=== PATIENT | female | born 1960 | race Caucasian/White ===

== ENCOUNTER 2016-05-27 23:28 | Emergency (ER) | payer MEDICAID ==
[~2016-05-27] VITALS: Ht 162.6 cm; Wt 106.8 kg
[~2016-05-27 23:28] MED LIST: ACIPHEX20 MG PO; ADVAIR 250/28 DISKUS IH; ALBUTEROL0.09 MG/Ac IH; ANTIVERT 25MG25 MG PO; ASPI325T6 PO; CITRATE OF MAG300 ML PO; CLONAZEPAM PO; COREG 25MG25 MG/TAB PO; COREG 6.256.25 MG/TA PO; CRESTOR PO; CUBICIN 500MG500 MG IV; CYMBALTA; DILANTIN 100MG100 MG; DILANTIN PO; DOXYCYCLINE 10100 MG PO; DULCOLAX TAB5 MG PO; EPIPEN 2-PAK1 MG/ML IM; FLEXERIL10 MG PO; HCTZ 25MG TAB25 MG PO; KLONOPIN WAFERS1 MG PO; KLONOPIN2 MG PO; LASIX40 MG PO; LEVOTHROID0.125 MG PO; LEVOXYL0.1 MG PO; LEXAPRO20 MG PO; LIDODERM 5% PATC1 EA TP; LIPITOR 40MG TA40 MG PO; LORTAB 5/500 501 TAB PO; MIRALAX PA17 GM/Dose PO; MOTRIN 600600 MG/TAB PO; NO HOME MEDICATIONS; NORCO 325 MG-51 TAB PO; NORVASC 10MG10 MG PO; NUEDEXTA 20 MG-1 CAP PO; PEPCID 20MG TAB20 MG PO; PERCOCET 325 MG1 TA2 PO; PERICOLACE 30 M1 CAP PO; PHENYTEK300 MG PO; PREDNISONE10 MG; PREDNISONE20 MG PO; PROTONIX 40MG T40 MG PO; PROTONIX20 MG PO; Patient's Own Medication PO; RHINOCORT AQUA8.6 GM NS; TYLENOL 325MG325 MG PO; VENTOLIN0.09 MG IH; VITAMIN D 50,1.25 MG PO; XANAX 0.5MG0.5 MG PO; XANAX0.5 MG PO; ZESTRIL 10MG10 MG PO; ZESTRIL40 MG PO; ZOFRAN 4MG T4 MG/TAB PO; [UNRECOGNIZED DRUG - OTHER]
[2016-05-27 23:31] VITALS: TEMP 102.3
[2016-05-28 01:06] LABS: HEMATOCRIT 38.4 % (37.0-47.0); HEMOGLOBIN 12.7 g/dl (12.5-16.0); MEAN CELL VOLUME 94 fl (80.0-100.0); MEAN CORPUSCULAR HEMOGLOBIN 31 pg (27.0-31.0); MEAN CORPUSCULAR HGB CONC 33 g/dl (33.0-37.0); PLATELET COUNT 158 K/mm3 (130-400); RED BLOOD COUNT 4.08 M/mm3 (4.10-5.30); REDCELL DISTRIBUTION WIDTH-CV 13.2 % (11.5-14.5)
[2016-05-28 01:07] LABS: ADD PATHOLOGY DIFF REVIEW NO
[2016-05-28 01:17] LABS: ADJUSTED CALCIUM 9.2 mg/dL (8.4-10.2); ALBUMIN 4.5 gm/dL (3.5-5.0); BILIRUBIN,TOTAL 0.5 mg/dL (0.0-1.0); CALCIUM 9.6 mg/dL (8.4-10.2); CREATININE, serum 0.56 mg/dL (0.52-1.25); POTASSIUM 4.1 mmol/L (3.4-5.0); TOTAL PROTEIN 7.4 gm/dL (6.4-8.2)
[2016-05-28 02:19] LABS: INFLUENZA B NEGATIVE
[2016-05-28 02:40] LABS: BAND 21 % (0-10); EOSINOPHIL 1 % (0-4); NEUTROPHILS 33 % (42.0-75.2); TOTAL CELLS COUNTED 100
[2016-05-28] MEDS ORDERED: PREDNISONE20 MG PO (03:32)
[2016-05-28] MEDS ORDERED: ALBUTEROL0.83 MG/ML IH (03:32)
[2016-05-28] MEDS ORDERED: AMOXICILLIN/CLA1 TA1 PO (03:32)
[2016-05-28 03:47] VITALS: BP 116/73; PULSE 82
== END 2016-05-28 03:49 | disposition home or self-care (01) ==
LOC: COL.ER 23:28
PROVIDERS: Emergency Medicine
DX: J18.9 Pneumonia, unspecified organism (principal); J45.909 Unspecified asthma, uncomplicated; I10 Essential (primary) hypertension
CPT/HCPCS: J0696; J2930; J7030

== ENCOUNTER 2016-07-11 17:09 | Emergency (ER) | payer MEDICAID ==
[~2016-07-11] VITALS: Ht 162.6 cm; Wt 150.0 kg
[~2016-07-11 17:09] MED LIST changes: +ALBUTEROL0.83 MG/ML IH; +AMOXICILLIN/CLA1 TA1 PO
[2016-07-11 17:10] VITALS: BP 132/69; PULSE 62; TEMP 98.4
[2016-07-11] MEDS ORDERED: NEURONTIN300 MG/CAP PO (17:45)
[2016-07-11] MEDS ORDERED: KEPPRA 500MG500 MG PO (17:45)
== END 2016-07-11 19:15 | disposition home or self-care (01) ==
LOC: COL.ER 17:09
DX: S93.692A Other sprain of left foot, initial encounter (principal); X50.1XXA Overexertion from prolonged static or awkward postures, initial encounter; W01.0XXA Fall on same level from slipping, tripping and stumbling without subsequent striking against object, initial encounter; Y92.009 Unspecified place in unspecified non-institutional (private) residence as the place of occurrence of the external cause; I10 Essential (primary) hypertension

== ENCOUNTER → 2016-08-11 | Outpatient (CLI) | payer MEDICAID ==
[~2016-08-11] MED LIST changes: +KEPPRA 500MG500 MG PO; +NEURONTIN300 MG/CAP PO; +ZANAFLEX CAPSULE2 MG PO
== END ==
LOC: BHSO 09:30
DX: F33.1 Major depressive disorder, recurrent, moderate (principal)

== ENCOUNTER 2016-10-09 13:15 | Outpatient (RCR) | payer MEDICAID ==
[~2016-10-09 13:15] MED LIST changes: -ZANAFLEX CAPSULE2 MG PO
[2016-12-23] MEDS ORDERED: ZANAFLEX CAPSULE2 MG PO (17:15)
== END 2016-12-22 ==
LOC: MKS.ESL.PT
DX: D32.9 Benign neoplasm of meninges, unspecified (principal); I89.0 Lymphedema, not elsewhere classified; R27.8 Other lack of coordination

== ENCOUNTER 2016-12-23 16:25 | Emergency (ER) | payer MEDICAID ==
[~2016-12-23] VITALS: Ht 162.6 cm; Wt 154.5 kg
[2016-12-23 16:36] VITALS: TEMP 99.1
[2016-12-23] MEDS ORDERED: ZANAFLEX CAPSULE2 MG PO (17:15)
[2016-12-23 17:43] LABS: MEAN CELL VOLUME 93 fl (80.0-100.0); MEAN CORPUSCULAR HGB CONC 34 g/dl (33.0-37.0); MEAN PLATELET VOLUME 11.3 fl (7.4-10.4); PLATELET COUNT 160 K/mm3 (130-400); RED BLOOD COUNT 3.68 M/mm3 (4.10-5.30); REDCELL DISTRIBUTION WIDTH-CV 12.6 % (11.5-14.5); WHITE BLOOD COUNT 7.1 K/mm3 (4.8-10.8)
[2016-12-23 17:50] LABS: PROTHROMBIN TIME 11.6 SECONDS (9.7-12.8)
[2016-12-23 17:51] LABS: HEMATOCRIT 34.1 % (37.0-47.0); HEMOGLOBIN 11.5 g/dl (12.5-16.0); MEAN CORPUSCULAR HEMOGLOBIN 31 pg (27.0-31.0)
[2016-12-23 17:52] LABS: ADD PATHOLOGY DIFF REVIEW NO
[2016-12-23 17:55] LABS: ADJUSTED CALCIUM 9.1 mg/dL (8.4-10.2); ALANINE AMINOTRANSFERASE 32 U/L (9-52); ALBUMIN 4.5 gm/dL (3.5-5.0); ALKALINE PHOSPHATASE 84 U/L (50-136); ANION GAP 14 mmol/L (7-16); BILIRUBIN,TOTAL 0.5 mg/dL (0.0-1.0); BLOOD UREA NITROGEN 14 mg/dL (7-17); C-REACTIVE PROTEIN 1.5 mg/dL (0.0-0.9); CALCIUM 9.5 mg/dL (8.4-10.2); CARBON DIOXIDE 24 mmol/L (22-30); CHLORIDE 103 mmol/L (98-107); CREATININE, serum 0.59 mg/dL (0.52-1.25); GLUCOSE 131 mg/dL (74-106); POTASSIUM 3.9 mmol/L (3.4-5.0); SODIUM 141 mmol/L (137-145)
[2016-12-23 18:04] LABS: B-TYPE NATRIURETIC PEPTIDE 69 pg/mL (0-125)
[2016-12-23 18:06] LABS: TROPONIN-I < 0.012 ng/mL (0.000-0.034)
[2016-12-23 18:21] LABS: BAND 5 % (0-10); EOSINOPHIL 2 % (0-4); METAMYELOCYTE 2 % (0-0); NEUTROPHILS 43 % (42.0-75.2); PLATELET ESTIMATE NORMAL (NORMAL); TOTAL CELLS COUNTED 100
[2016-12-23 18:22] LABS: THYROID STIMULATING HORMONE 0.959 uIU/mL (0.465-4.680)
[2016-12-23 19:46] VITALS: BP 137/68; PULSE 60
== END 2016-12-23 19:47 | disposition home or self-care (01) ==
LOC: COL.ER 16:25
PROVIDERS: Emergency Medicine
DX: G81.94 Hemiplegia, unspecified affecting left nondominant side (principal); G40.909 Epilepsy, unspecified, not intractable, without status epilepticus; F32.9 Major depressive disorder, single episode, unspecified; E03.9 Hypothyroidism, unspecified; F41.9 Anxiety disorder, unspecified; Z86.79 Personal history of other diseases of the circulatory system
CPT/HCPCS: J2060

== ENCOUNTER → 2017-03-16 | Outpatient (CLI) | payer BC, MEDICAID ==
[~2017-03-16] MED LIST changes: +ZANAFLEX CAPSULE2 MG PO
== END ==
LOC: BHSO 10:04
DX: F33.1 Major depressive disorder, recurrent, moderate (principal)

== ENCOUNTER → 2017-10-18 | Outpatient (CLI) | payer MEDICARE | LOC: COL.RAD 07:17 | DX: D18.02 Hemangioma of intracranial structures (principal); G93.89 Other specified disorders of brain; Z98.890 Other specified postprocedural states ==

== ENCOUNTER 2017-10-30 17:04 | Emergency (ER) | payer MEDICARE ==
[~2017-10-30] VITALS: Ht 162.6 cm; Wt 163.6 kg
[2017-10-30 17:07] VITALS: TEMP 99
[2017-10-30] MEDS ORDERED: PROZAC 20MG20 MG PO (17:23)
[2017-10-30] MEDS ORDERED: ZANAFLEX2 MG PO (17:24)
[2017-10-30] MEDS ORDERED: XANAX 1MG1 MG PO (17:24)
[2017-10-30 17:57] LABS: HEMOGLOBIN 11.7 g/dl (12.5-16.0); MEAN CELL VOLUME 91 fl (80.0-100.0); MEAN CORPUSCULAR HEMOGLOBIN 30 pg (27.0-31.0); MEAN CORPUSCULAR HGB CONC 33 g/dl (33.0-37.0); MEAN PLATELET VOLUME 11.3 fl (7.4-10.4); PLATELET COUNT 152 K/mm3 (130-400); RED BLOOD COUNT 3.85 M/mm3 (4.10-5.30); REDCELL DISTRIBUTION WIDTH-CV 12.6 % (11.5-14.5)
[2017-10-30 18:00] LABS: HEMATOCRIT 35.1 % (37.0-47.0)
[2017-10-30 18:04] LABS: PROTHROMBIN TIME 11.7 SECONDS (9.7-12.8)
[2017-10-30 18:06] LABS: ALANINE AMINOTRANSFERASE 41 U/L (9-52); ALBUMIN 4.3 gm/dL (3.5-5.0); ALKALINE PHOSPHATASE 84 U/L (50-136); ANION GAP 14 mmol/L (7-16); AST,SGOT 27 U/L (15-37); BILIRUBIN,TOTAL 0.5 mg/dL (0.0-1.0); BLOOD UREA NITROGEN 15 mg/dL (7-17); CALCIUM 9.6 mg/dL (8.4-10.2); CARBON DIOXIDE 26 mmol/L (22-30); CHLORIDE 100 mmol/L (98-107); CREATININE, serum 0.71 mg/dL (0.52-1.25); GLUCOSE 159 mg/dL (74-106); POTASSIUM 4.1 mmol/L (3.4-5.0); SODIUM 140 mmol/L (137-145)
[2017-10-30 18:16] LABS: BAND 4 % (0-10); EOSINOPHIL 4 % (0-4); LYMPHOCYTE 38 % (20.0-51.0); NEUTROPHILS 47 % (42.0-75.2); PLATELET ESTIMATE NORMAL (NORMAL)
[2017-10-30 18:17] LABS: ANISOCYTOSIS 1+
[2017-10-30 18:20] LABS: TROPONIN-I < 0.012 ng/mL (0.000-0.034)
[2017-10-30 21:08] VITALS: BP 116/65; PULSE 58
== END 2017-10-30 21:26 | disposition home or self-care (01) ==
LOC: COL.ER 17:04
PROVIDERS: Emergency Medicine
DX: R07.89 Other chest pain (principal); I10 Essential (primary) hypertension; E66.9 Obesity, unspecified; E78.5 Hyperlipidemia, unspecified; E03.9 Hypothyroidism, unspecified; Z98.51 Tubal ligation status; Z90.710 Acquired absence of both cervix and uterus; Z90.49 Acquired absence of other specified parts of digestive tract
CPT/HCPCS: J1200; J1885; J2270; J2405; J2930; Q9967

== ENCOUNTER 2017-12-26 15:31 | Emergency (ER) | payer MEDICARE ==
[~2017-12-26] VITALS: Ht 162.6 cm; Wt 160.5 kg
[~2017-12-26 15:31] MED LIST changes: +PROZAC 20MG20 MG PO; +XANAX 1MG1 MG PO; +ZANAFLEX2 MG PO
[2017-12-26 15:36] VITALS: BP 108/47; TEMP 98.8
[2017-12-26 16:27] LABS: HEMOGLOBIN 10.6 g/dl (12.5-16.0); MEAN CELL VOLUME 92 fl (80.0-100.0); MEAN CORPUSCULAR HEMOGLOBIN 30 pg (27.0-31.0); MEAN CORPUSCULAR HGB CONC 33 g/dl (33.0-37.0); MEAN PLATELET VOLUME 11.3 fl (7.4-10.4); PLATELET COUNT 162 K/mm3 (130-400); RED BLOOD COUNT 3.53 M/mm3 (4.10-5.30); REDCELL DISTRIBUTION WIDTH-CV 12.7 % (11.5-14.5)
[2017-12-26 16:28] LABS: HEMATOCRIT 32.5 % (37.0-47.0)
[2017-12-26 16:36] LABS: ALBUMIN 4.3 gm/dL (3.5-5.0); BILIRUBIN,TOTAL 0.6 mg/dL (0.0-1.0); CALCIUM 9.1 mg/dL (8.4-10.2); CREATININE, serum 0.88 mg/dL (0.52-1.25); POTASSIUM 4.6 mmol/L (3.4-5.0)
[2017-12-26 16:43] LABS: BAND 14 % (0-10); LYMPHOCYTE 23 % (20.0-51.0); METAMYELOCYTE 1 % (0-0); NEUTROPHILS 51 % (42.0-75.2); PLATELET ESTIMATE NORMAL (NORMAL)
[2017-12-26 18:23] LABS: COLLECTION METHOD CLEAN CATCH
[2017-12-26 18:29] LABS: PH 5 (5-8); URINE APPEARANCE Clear; URINE BACTERIA Rare /hpf; URINE BILIRUBIN Negative (NEGATIVE); URINE BLOOD Negative (NEGATIVE); URINE COLOR Yellow; URINE GLUCOSE Negative (NEGATIVE); URINE KETONE Negative (NEGATIVE); URINE LEUKOCYTE ESTERASE Negative (NEGATIVE); URINE NITRATE Negative (NEGATIVE); URINE PROTEIN(semi-quant) Negative (NEGATIVE); URINE RBC 0-2 /hpf; URINE UROBILINOGEN Negative (NEGATIVE)
[2017-12-26 18:58] VITALS: PULSE 70
== END 2017-12-26 18:58 | disposition home or self-care (01) ==
LOC: COL.ER 15:31
PROVIDERS: Emergency Medicine
DX: K64.4 Residual hemorrhoidal skin tags (principal); K64.8 Other hemorrhoids; I10 Essential (primary) hypertension; E03.9 Hypothyroidism, unspecified; E78.5 Hyperlipidemia, unspecified; E66.01 Morbid (severe) obesity due to excess calories; Z68.44 Body mass index [BMI] 60.0-69.9, adult; Z90.49 Acquired absence of other specified parts of digestive tract; Z90.710 Acquired absence of both cervix and uterus; Z90.89 Acquired absence of other organs

== ENCOUNTER 2018-02-01 07:51 | Day surgery (SDC) | payer MEDICARE ==
[~2018-02-01] VITALS: Ht 162.6 cm; Wt 153.2 kg
[~2018-02-01 07:51] MED LIST changes: +KLONOPIN 1MG1 MG PO; -KLONOPIN2 MG PO; +ZANAFLEX 4MG TAB4 MG PO; -ZANAFLEX2 MG PO
[2018-02-01] MEDS ORDERED: KLONOPIN 1MG1 MG PO (08:14)
[2018-02-01 08:47] VITALS: BP 137/62; PULSE 54; TEMP 97
[2018-02-01] MEDS ORDERED: BENTYL 10MG10 MG/CAP PO (09:45)
[2018-02-01 09:55] VITALS: BP 115/55; PULSE 65; TEMP 97
[2018-02-01 10:10] VITALS: BP 106/55; PULSE 56
[2018-02-01 10:25] VITALS: BP 154/139; PULSE 54
[2018-02-01 10:40] VITALS: BP 110/72; PULSE 52
== END 2018-02-01 10:55 | disposition home or self-care (01) ==
LOC: SDCO 07:51
DX: K57.30 Diverticulosis of large intestine without perforation or abscess without bleeding (principal); K64.0 First degree hemorrhoids; K29.30 Chronic superficial gastritis without bleeding; R19.7 Diarrhea, unspecified; K21.9 Gastro-esophageal reflux disease without esophagitis; E78.00 Pure hypercholesterolemia, unspecified; J45.909 Unspecified asthma, uncomplicated; I10 Essential (primary) hypertension; Z88.8 Allergy status to other drugs, medicaments and biological substances; Z86.010 Personal history of colon polyps; Z80.0 Family history of malignant neoplasm of digestive organs
CPT/HCPCS: J2704; J7030

== ENCOUNTER → 2018-08-04 | Outpatient (CLI) | payer MEDICARE ==
[~2018-08-04] MED LIST changes: +BENTYL 10MG10 MG/CAP PO
== END ==
LOC: BHSO 10:57
DX: F33.41 Major depressive disorder, recurrent, in partial remission (principal)
CPT/HCPCS: G0463

== ENCOUNTER → 2019-01-20 | Outpatient (CLI) | payer MEDICARE | LOC: COL.RAD 11:00 | DX: K76.0 Fatty (change of) liver, not elsewhere classified (principal) | CPT/HCPCS: Q9967 ==

== ENCOUNTER → 2019-01-27 | Outpatient (CLI) | payer MEDICARE | LOC: BHSO 09:06 | DX: F33.41 Major depressive disorder, recurrent, in partial remission (principal) | CPT/HCPCS: G0463 ==

== ENCOUNTER → 2019-02-09 | Outpatient (CLI) | payer MEDICARE | LOC: COL.RAD 12:31 | DX: H05.20 Unspecified exophthalmos (principal); R22.0 Localized swelling, mass and lump, head; Z98.890 Other specified postprocedural states | CPT/HCPCS: Q9967 ==

== ENCOUNTER 2019-04-05 12:58 | Observation (INO) | payer MEDICARE ==
[~2019-04-05] VITALS: Ht 162.6 cm; Wt 136.4 kg
[2019-04-05 13:26] LABS: HEMOGLOBIN 10.9 g/dl (12.5-16.0); MEAN CELL VOLUME 95 fl (80.0-100.0); MEAN CORPUSCULAR HEMOGLOBIN 31 pg (27.0-31.0); MEAN CORPUSCULAR HGB CONC 32 g/dl (33.0-37.0); MEAN PLATELET VOLUME 11.7 fl (7.4-10.4); PLATELET COUNT 150 K/mm3 (130-400); RED BLOOD COUNT 3.54 M/mm3 (4.10-5.30); REDCELL DISTRIBUTION WIDTH-CV 13.2 % (11.5-14.5)
[2019-04-05 13:27] LABS: HEMATOCRIT 33.7 % (37.0-47.0)
[2019-04-05 13:35] LABS: ALANINE AMINOTRANSFERASE 35 U/L (9-52); ALBUMIN 4.9 gm/dL (3.5-5.0); ALKALINE PHOSPHATASE 114 U/L (50-136); ANION GAP 14 mmol/L (7-16); AST,SGOT 24 U/L (15-37); BILIRUBIN,TOTAL 0.7 mg/dL (0.0-1.0); BLOOD UREA NITROGEN 19 mg/dL (7-17); CALCIUM 8.5 mg/dL (8.4-10.2); CARBON DIOXIDE 24 mmol/L (22-30); CHLORIDE 103 mmol/L (98-107); CREATININE, serum 1.07 (0.52-1.25); GLUCOSE 118 mg/dL (74-106); LIPASE 324 U/L (23-300); POTASSIUM 4.6 mmol/L (3.4-5.0); SODIUM 140 mmol/L (137-145); TOTAL PROTEIN 7.6 gm/dL (6.4-8.2)
[2019-04-05 13:40] LABS: PROTHROMBIN TIME 11.2 SECONDS (9.7-12.8)
[2019-04-05 13:42] LABS: PARTIAL THROMBOPLASTIN TIME 42.1 SECONDS (26.0-37.0)
[2019-04-05 13:48] LABS: TROPONIN-I < 0.012 ng/mL (0.000-0.035)
[2019-04-05 13:52] LABS: PROLACTIN 21.3 ng/mL (3.0-18.6)
[2019-04-05 13:53] LABS: EOSINOPHIL 3 % (0-4); LYMPHOCYTE 26 % (20.0-51.0); NEUTROPHILS 60 % (42.0-75.2); PLATELET ESTIMATE NORMAL (NORMAL)
[2019-04-05 14:15] LABS: COLLECTION METHOD CLEAN CATCH
[2019-04-05] MEDS ORDERED: CYMBALTA 60MG60 MG PO (14:15)
[2019-04-05] MEDS ORDERED: ZOFRAN ODT4 MG PO (14:21)
[2019-04-05 14:24] LABS: MUCOUS Present /lpf; PH 5 (5-8); URINE APPEARANCE Cloudy; URINE BACTERIA Rare /hpf; URINE BILIRUBIN Negative (NEGATIVE); URINE BLOOD Negative (NEGATIVE); URINE COLOR Yellow; URINE GLUCOSE Negative (NEGATIVE); URINE KETONE Negative (NEGATIVE); URINE LEUKOCYTE ESTERASE Trace (NEGATIVE); URINE NITRATE Negative (NEGATIVE); URINE PROTEIN(semi-quant) Negative (NEGATIVE); URINE UROBILINOGEN Negative (NEGATIVE)
[2019-04-05] MEDS ORDERED: WELLBUTRIN XL150 MG PO (14:28)
[2019-04-05] MEDS ORDERED: NUEDEXTA 20 MG-1 CAP PO (14:29)
[2019-04-05] MEDS ORDERED: GLUCOPHAGE1000 MG PO (14:30)
[2019-04-05] MEDS ORDERED: TRULICITY0.75 MG/0. SQ (15:12)
--- NOTE | 2019-04-05 16:45 | NUR ---
Pt arrived to floor at this time via cart with ER staff, family at bedside, notified physician of arrival. Oriented to room, will continue to monitor.
[2019-04-05 17:22] VITALS: BP 111/69; PULSE 77; TEMP 98.4
--- NOTE | 2019-04-05 18:46 | NUR ---
Bedside shift report given to JUDY Silvestre who will resume care.
[2019-04-05 21:25] VITALS: BP 133/50; PULSE 83; TEMP 99
--- NOTE | 2019-04-05 22:00 | NUR ---
Received report from JUDY Christopher. Assessment complete.Alert and oriented. Denies any pain or discomfort at this time. Dtr at bedside. Meds administered as ordered. SCD placed on BLE. noted left arm tremor which pt states occurred prior to admit. Tele monitor in place, leads checked. Pt requested colace, last BM x3 days ago. Per Dr Powell, yanet to administer Colace 200mg PRN. Needs met. Call light within reach.
[2019-04-05 23:25] VITALS: BP 139/62; PULSE 79; TEMP 99
[2019-04-06 03:06] VITALS: BP 102/38; PULSE 73; TEMP 98.1
[2019-04-06 05:16] VITALS: BP 104/40; PULSE 67; TEMP 97.8
--- NOTE | 2019-04-06 05:53 | NUR ---
Pt uneventful during this shift. Call light within reach.
[2019-04-06 07:02] LABS: MEAN CELL VOLUME 97 fl (80.0-100.0); MEAN CORPUSCULAR HGB CONC 32 g/dl (33.0-37.0); MEAN PLATELET VOLUME 12.3 fl (7.4-10.4); PLATELET COUNT 138 K/mm3 (130-400); RED BLOOD COUNT 3.11 M/mm3 (4.10-5.30); REDCELL DISTRIBUTION WIDTH-CV 13.3 % (11.5-14.5)
[2019-04-06 07:04] LABS: HEMOGLOBIN 9.6 g/dl (12.5-16.0); MEAN CORPUSCULAR HEMOGLOBIN 31 pg (27.0-31.0)
--- NOTE | 2019-04-06 07:08 | NUR ---
Report given to JUDY Ogden.
[2019-04-06 07:17] LABS: BAND 6 % (0-10); CALCIUM 8.1 mg/dL (8.4-10.2); CREATININE, serum 1.14 (0.52-1.25); EOSINOPHIL 1 % (0-4); LYMPHOCYTE 37 % (20.0-51.0); METAMYELOCYTE 1 % (0-0); NEUTROPHILS 45 % (42.0-75.2); PLATELET ESTIMATE NORMAL (NORMAL)
[2019-04-06 09:21] VITALS: BP 124/110; PULSE 86; TEMP 97.9
--- NOTE | 2019-04-06 09:30 | NUR ---
Pt awake and alert upon entry this morning, no C/O pain, shift assessments complete, left Pt call light in reach, bed in lowest position.
[2019-04-06 12:31] VITALS: BP 105/33; PULSE 75; TEMP 98.2
[2019-04-06] MEDS ORDERED: PLAVIX 75MG TAB75 MG PO (15:08)
[2019-04-06] MEDS ORDERED: ASPIRIN E.C. 8181 MG PO (15:09)
--- NOTE | 2019-04-06 16:23 | NUR ---
LUCIA met with the patient to discuss discharge plan. The patient lives in [place] with her daughter, Srinath Perez ([id number]#[phone]). She reports independence with ADLs and has a walker. The patient's PCP is Dr. Candido Bearden and she receives her medications at [facility] and [facility]. She reports no difficulties obtaining her meds. The patient does not have advanced directives completed, but she was interested in obtaining a form form for DPO[facility]. LUCIA provided. The patient plans to return home with her daughter upon discharge. No additional needs at this time.
--- NOTE | 2019-04-06 18:27 | NUR ---
Pt resting in the room after her procedure this morning, no C/O pain, VS have remained stable.
--- NOTE | 2019-04-06 20:03 | NUR ---
Pt discharged to home, Pt escorted to entrance, left with family via private transportation.
== END 2019-04-06 20:05 | disposition home or self-care (01) ==
LOC: COL.ER 12:58 → MEDICAL 15:01
PROVIDERS: Emergency Medicine; Hospitalist; ADMIT Student in an Organized Health Care Education/Training Program
DX: R47.01 Aphasia (principal); R53.1 Weakness; I10 Essential (primary) hypertension; F41.9 Anxiety disorder, unspecified; F32.9 Major depressive disorder, single episode, unspecified; Z91.041 Radiographic dye allergy status; E11.9 Type 2 diabetes mellitus without complications; G47.33 Obstructive sleep apnea (adult) (pediatric); E78.5 Hyperlipidemia, unspecified; E03.9 Hypothyroidism, unspecified; E66.01 Morbid (severe) obesity due to excess calories; E78.1 Pure hyperglyceridemia; Z79.84 Long term (current) use of oral hypoglycemic drugs; I08.1 Rheumatic disorders of both mitral and tricuspid valves; Z79.899 Other long term (current) drug therapy
CPT/HCPCS: A9585; J2060; J2405; J3010

== ENCOUNTER → 2019-05-12 | Outpatient (CLI) | payer MEDICARE ==
[~2019-05-12] MED LIST changes: +ASPIRIN E.C. 8181 MG PO; +CYMBALTA 60MG60 MG PO; +GLUCOPHAGE1000 MG PO; +PLAVIX 75MG TAB75 MG PO; +TRULICITY0.75 MG/0. SQ; +WELLBUTRIN XL150 MG PO; +ZOFRAN ODT4 MG PO
== END ==
LOC: BHSO 10:15
DX: F33.42 Major depressive disorder, recurrent, in full remission (principal)
CPT/HCPCS: G0463

== ENCOUNTER → 2020-02-09 | Outpatient (CLI) | payer MEDICARE | LOC: BHSO 14:40 | DX: F33.41 Major depressive disorder, recurrent, in partial remission (principal) | CPT/HCPCS: G0463 ==

== ENCOUNTER → 2020-09-24 | Outpatient (CLI) | payer MEDICARE | LOC: COL.RAD 07:47 | DX: R10.9 Unspecified abdominal pain (principal); Z90.710 Acquired absence of both cervix and uterus; Z90.49 Acquired absence of other specified parts of digestive tract ==

== ENCOUNTER → 2021-02-26 | Outpatient (CLI) | payer MEDICARE | LOC: COL.RAD 06:55 | DX: D18.00 Hemangioma unspecified site (principal) ==

== ENCOUNTER 2021-04-09 09:15 | Outpatient (RCR) | payer MEDICARE, MEDICAID | END 2021-04-11 | LOC: MKS.ESL.PT | DX: R26.81 Unsteadiness on feet (principal); R53.1 Weakness; R25.1 Tremor, unspecified; Z98.890 Other specified postprocedural states ==

== ENCOUNTER 2021-06-04 09:45 | Outpatient (RCR) | payer MEDICARE, MEDICAID | END 2021-06-09 | disposition home or self-care (01) | LOC: MKS.ESL.PT | DX: R26.81 Unsteadiness on feet (principal); R53.81 Other malaise ==

== ENCOUNTER 2021-07-03 10:30 | Outpatient (RCR) | payer MEDICARE, MEDICAID | END 2021-07-10 | disposition home or self-care (01) | LOC: MKS.ESL.PT | DX: R26.81 Unsteadiness on feet (principal); Z72.3 Lack of physical exercise ==

== ENCOUNTER 2021-08-07 10:30 | Outpatient (RCR) | payer MEDICARE, MEDICAID | END 2021-08-09 | disposition home or self-care (01) | LOC: MKS.ESL.PT | DX: R26.81 Unsteadiness on feet (principal); R53.81 Other malaise ==

== ENCOUNTER 2023-04-01 14:40 | Outpatient (RCR) | payer MEDICARE, MEDICAID | END 2023-04-11 | disposition home or self-care (01) | LOC: MKS.ESL.PT | DX: R25.1 Tremor, unspecified (principal); R53.1 Weakness; R53.81 Other malaise ==

== ENCOUNTER 2023-05-07 11:15 | Outpatient (RCR) | payer MEDICARE, MEDICAID | END 2023-05-12 | disposition home or self-care (01) | LOC: MKS.ESL.PT | DX: R25.1 Tremor, unspecified (principal); R53.1 Weakness ==

== ENCOUNTER 2023-06-02 11:15 | Outpatient (RCR) | payer MEDICARE, MEDICAID | END 2023-06-10 | disposition home or self-care (01) | LOC: MKS.ESL.PT | DX: R25.1 Tremor, unspecified (principal); R53.1 Weakness ==